=== PATIENT | male | born 1985 | race Caucasian/White ===

== ENCOUNTER 2021-05-24 03:40 | Emergency (ER) | payer BC ==
[~2021-05-24] VITALS: Ht 180.3 cm; Wt 79.4 kg
--- NOTE | 2021-05-24 03:45 | NUR ---
Pt placed in room ED4A by deboning team leader zoey. VSS, PE wnl, pt [id number] with good color and temp. pt denies any pain, n/, dizziness, sob or discomfort. Pt awaiting EDMD eval.
--- NOTE | 2021-05-24 03:52 | NUR ---
EDMD at bedside to assess and eval pt.
[2021-05-24 04:11] LABS: HEMATOCRIT 42.6 % (36.7-47.1); MEAN CORPUSCULAR HEMOGLOBIN 32.4 uug (23.8-33.4); MEAN CORPUSCULAR VOLUME 91.6 fL (73.0-96.2); PLATELET COUNT (AUTO) 196 K/uL (152-348)
[2021-05-24 04:26] LABS: CREATININE 1.2 mg/dL (0.6-1.3); POTASSIUM 3.7 mmol/L (3.5-5.1)
--- NOTE | 2021-05-24 05:41 | NUR ---
EDMD at pt bedside discussing findings and recommendations with pt. Pts labs printed out per EDMD.
--- NOTE | 2021-05-24 05:55 | NUR ---
Pt given DC instructions along with copies of his EKG and lab report. Pt confirms understanding of aftercare. Pt's vss, PE wnl. Pt has good color and appearance, denies any pain, dizziness, sob, n/v or discomfort of any kind. no s/sx of distress. Pt ambulated out of dept without difficulty and with a steady gait.
[2021-05-24 06:14] VITALS: BP 128/78
== END 2021-05-24 06:15 | disposition home or self-care (01) ==
LOC: ER 03:49
DX: I10 Essential (primary) hypertension (principal); R07.89 Other chest pain; Q61.3 Polycystic kidney, unspecified; Q23.1 Congenital insufficiency of aortic valve; Z80.9 Family history of malignant neoplasm, unspecified
CPT/HCPCS: 36415; 83735; 85025; A4663